=== PATIENT | female | born 2000 | race Caucasian/White ===

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

== ENCOUNTER 2019-05-08 10:11 | Inpatient (IN) | payer BC, MEDICAID ==
--- NOTE | 2019-05-08 10:34 | ED ---
Psychiatric Complaint - HPI Summary HPI Summary: The patient is a 18-year-old female presenting to [facility] accompanied by mother with a chief complaint of gradually worsening thoughts of suicide without plan over the last few days. She reports a history of self-harm , and she believes that she is beginning to feel like she is going to hurt herself. She does not have any medical complaints at this time. She states she is compliant with her medications. Past medical history significant for anxiety and depression. Nonsmoker, no alcohol use, no substance use. Medications reviewed. Allergies noted. - History Of Current Complaint Chief Complaint: EDMentalHealth Time Seen by Provider: 05/08/19 10:24 Hx Obtained From: Patient Onset/Duration: Gradual Onset, Lasting Days, Still Present Timing: Constant Severity Initially: Mild Severity Currently: Moderate Character: Depressed Aggravating Factor(s): Nothing Alleviating Factor(s): Nothing Associated Signs And Symptoms: Positive: Negative Related History: Positive For: Prior Psychiatric Issues Has Suicidal: Reports: Thoughts. Denies: With A Plan - Allergies/Home Medications Allergies/Adverse Reactions: Allergies Allergy/AdvReac Type Severity Reaction Status Date / Time lactase [From Dairy Aid] Allergy Diarrhea Verified 07/04/18 13:23 PMH/Surg Hx/FS Hx/Imm Hx Endocrine/Hematology History: Denies: Hx Diabetes Cardiovascular History: Denies: Hx Hypercholesterolemia, Hx Hypertension Respiratory History: Denies: Hx Asthma Sensory History: Reports: Hx Contacts or Glasses Opthamlomology History: Reports: Hx Contacts or Glasses Psychiatric History: Reports: Hx Anxiety, Hx Depression Denies: Hx Eating Disorder, Hx of Violent Episodes Against Others - Surgical History Surgical History: None Surgery Procedure, Year, and Place: none Infectious Disease History: No Infectious Disease History: Denies: Traveled Outside the [place] in Last 30 Days - Family History Known Family History: Negative: Renal Disease - Social History Alcohol Use: None Hx Substance Use: No Substance Use Type: Reports: None Hx Tobacco Use: No Smoking Status (MU): Never Smoked Tobacco Review of Systems Negative: Fever Negative: Cough Positive: Depressed, Other - suicidal thoughts All Other Systems Reviewed And Are Negative: Yes Physical Exam - Summary Physical Exam Summary: VITAL SIGNS: Reviewed. GENERAL: Patient is a well-developed and nourished female who is lying comfortable in the stretcher. Patient is not in any acute respiratory distress. HEAD AND FACE: No signs of trauma. No ecchymosis, hematomas or skull depressions. No sinus tenderness. EYES: PERRLA, EOMI x 2, No injected conjunctiva, no nystagmus. EARS: Hearing grossly intact. Ear canals and tympanic membranes are within normal limits. MOUTH: Oropharynx within normal limits. NECK: Supple, trachea is midline, no adenopathy, no JVD, no carotid bruit, no c- spine tenderness, neck with full ROM. CHEST: Symmetric, no tenderness at palpation. LUNGS: Clear to auscultation bilaterally. No wheezing or crackles. CVS: Regular rate and rhythm, S1 and S2 present, no murmurs or gallops appreciated. ABDOMEN: Soft, non-tender. No signs of distention. No rebound, no guarding, and no masses palpated. Bowel sounds are normal. EXTREMITIES: FROM in all major joints, no edema, no cyanosis or clubbing. NEURO: Alert and oriented x 3. No acute neurological deficits. Speech is normal and follows commands. SKIN: Dry and warm. PSYCH: Depressed, quiet, and states suicidal thoughts without a plan. No homicidal thoughts or plan. No signs of psychosis or pressure speech. No tangential speech. Triage Information Reviewed: Yes Vital Signs On Initial Exam: Initial Vitals Temp Pulse Resp BP Pulse Ox 97.1 F 88 18 117/73 99 05/08/19 10:18 05/08/19 10:18 05/08/19 10:18 05/08/19 10:18 05/08/19 10:18 Vital Signs Reviewed: Yes Procedures - Sedation Patient Received Moderate/Deep Sedation with Procedure: No Diagnostics - Vital Signs Vital Signs Temp Pulse Resp BP Pulse Ox 05/08/19 10:18 97.1 F 88 18 117/73 99 - Laboratory Result Diagrams: 05/08/19 11:04 05/08/19 11:04 Lab Statement: Any lab studies that have been ordered have been reviewed, and results considered in the medical decision making process. Re-Evaluation - Re-Evaluation First Eval Re-Evaluation Time: 10:30 Comment: Patient is medically clear for psychiatric evaluation. Course/Dx - Course Assessment/Plan: The patient is a 18-year-old female presenting to [facility] accompanied by mother with a chief complaint of gradually worsening thoughts of suicide without plan over the last few days. She reports a history of self-harm, and she believes that she is beginning to feel like she is going to hurt herself. She does not have any medical complaints at this time. She states she is compliant with her medications. Past medical history significant for anxiety and depression. Nonsmoker, no alcohol use, no substance use. Medications reviewed. Allergies noted. Blood work w/o a significant abnormality. She is medically cleared. She is awaiting a MHE. Patient is hemodynamically stable and A+O x 3. Dr. Onofre evaluated the patient and recommends admission. - Differential Dx/Clinical Impression Differential Diagnosis/HQI/PQRI: Positive: Depression, Suicidal Ideation Provider Diagnosis: Depressive disorder - Physician Notifications Discussed Care Of Patient With: Israel Onofre - psychiatry Time Discussed With Above Provider: 15:00 Instructed by Provider To: Other - Dr. Onofre and the psychiatric team have evaluated the patient and determined her warranting need for admission on voluntary status. Patient Is Medically Stable For: Psych Evaluation Discharge ED - Sign-Out/Discharge Documenting (check all that apply): Patient Departure - Patient admitted to [facility] - Discharge Plan Condition: Improved Disposition: [facility]ATRIC [facility] [place] Billing Disposition and Condition Condition: STABLE Disposition: Psychiatric Facility [facility] - Attestation Statements Document Initiated by Scribe: Yes Documenting Scribe: Irena Lozoya Provider For Whom Micki is Documenting (Include Credential): Dr. Tong Hodgson MD Scribe Attestation: Irena Marc scribed for Dr. Tong Hodgson MD on 05/11/19 at 1731. Scribe Documentation Reviewed: Yes Provider Attestation: The documentation as recorded by the Irena kearney accurately reflects the service I personally performed and the decisions made by me, Dr. Tong Hodgson MD Status of Scribe Document: Viewed
[2019-05-08 10:54] LABS: Urine Appearance Cloudy; Urine Bilirubin Negative (Negative); Urine Blood 2+ (Negative); Urine Color Yellow; Urine Glucose Negative (Negative); Urine Ketones Negative (Negative); Urine Nitrite Negative (Negative); Urine Protein Negative (Negative); Urine Specific Gravity 1.024 (1.010-1.030); Urine Urobilinogen Negative (Negative)
[2019-05-08 11:04] LABS: Urine Bacteria 1+ (Absent); Urine Benzodiazepine Screen None Detected (None Detect); Urine Opiates Screen None Detected (None Detect); Urine Red Blood Cell Absent (Absent); Urine Squamous Epithelial Cell Present (Absent); Urine White Blood Cell Trace(0-5/hpf) (Absent)
[2019-05-08 11:13] LABS: ABS Lymphocytes 1.6 10^3/ul (1.0-4.8); ABS Monocytes 0.5 10^3/ul (0-0.8); ABS Neutrophils 2.8 10^3/ul (1.5-7.7); Eosinophil % 0.6 %; Hematocrit 40 % (35-47); Hemoglobin 13.7 g/dL (12.0-16.0); Lymphocyte % 32.7 %; Mean Corpuscular HGB Conc 34 g/dL (31-36); Mean Corpuscular Hemoglobin 30 pg (27-31); Mean Corpuscular Volume 88 fL (80-97); Mean Platelet Volume 8.7 fL (7.4-10.4); Nucleated Red Blood Cells % 0.1; Platelet Count 210 10^3/uL (150-450); Red Blood Count 4.59 10^6 /uL (3.70-4.87); Red Cell Distribution Width 13 % (10-15)
--- OUTSIDE RECORDS SUMMARY | 2019-05-08 11:16 | XMS REPORT ---
:2000 Author Organization [facility] Address [address] [place] [address] Care Team Providers Name Role Phone Stu Flower Unavailable Unavailable PROBLEMS Type Condition ICD9-CM Code [id number] Code Onset Condition SNOMED Code Dates Status Problem Vision decreased H54.7 Active 955876730 Problem Primary insomnia F51.01 Active 2718827 Problem Decreased vision H54.2 Active 247632027 in both eyes Problem Migraine without G43.009 Active 006201581 aura and without status migrainosus, not intractable Problem Depression with F41.8 Active 133530524 anxiety ALLERGIES No Information ENCOUNTERS Encounter Location Date Diagnosis [address], Feb, Concussion S06.0X9A [place] [address] [facility] [address] [facility] Feb, [place] [address] [place] [address] [facility] Jan, [place] [address], Jan, [place] [address] consciousness, initial encounter S06.0X0A [facility] [address] [facility] Jan, [place] [address], Oct, Well adult exam Z00.00 ; [place] [address] Depression with anxiety F41.8 ; Vision decreased H54.7 ; Primary insomnia F51.01 ; Overweight (BMI 25.0-29.9) E66.3 ; BMI 26.0-26.9,adult Z68.26 ; Encounter for immunization Z23 and Contraceptive education Z30.[address], Oct, [place] F51.01 [place] [address] [place] [facility] [address] [place] [address] [place], [place] [address] [place], [place] [address] [place], Jan, Throat [place] R07.0 [place] [address] [place], Nov, Viral gastroenter[place] A08.4 [place] [address] ; Overweight (BMI 25.0-29.9) E66.3 and BMI 26.0-26.9,adult Z68.[address] [place] [address] [place], [place] [address] [place], Aug, [place] [address] F41.8 ; Acute midline low back pain without sciatica M54.5 and Chest pain at rest R07.[address] [place], [place] [address] Jul, [place] [address] [place], [place] [address] [place], June, [place] [address] health examination without abnormal findings Z00.129 ; Tachycardia R00.0 ; Decreased vision in both eyes H54.2 ; Migraine without aura and without status migrainosus, not intractable G43.009 and Depression with anxiety F41.[address] [place], Dec, [place] [address] [place], [place] [address] [place], Nov, [place] [address] cause R41.3 ; Blurred vision H53.8 and Weakness of both upper extremities R29.[address] [place], [place] [address] [place], [place] [address] [place], Sep, Sore throat ( viral) J02.9 [place] [address] Aug, [place] [address] [place] [facility] [address] [facility] [place], Jul, [place] [address] examination related to employment Z02.1 ; Migraine without aura and without status migrainosus, not intractable G43.009 and Anxiety F41.9 [place] [facility] [address] [facility] [place], June, [place] [address] without status migrainosus, not intractable G43.009 [place] [facility] [address] [place] [address] [place], [place] [address] Dec, [place] [address] [facility] [address] [place] [address] [place], Nov, [place] [address] J45.[address] [place] [address] [place], Oct, [place] [address] with acute exacerbation J45.41 and Encounter for immunization Z23 [address] Oct, Sibilant rhonchi R06.2 [place] [address] May, [place] [address] [facility] [address] [facility] [place], [place] [address] [facility] [address] [place] [address] [place], [place] [address] [place] [address] [facility] [address] [facility] [place], [place] [address] [facility] [address] [place] [address] [place], Apr, Sibilant [place] R06.2 [place] [address] [facility] [address] [place] [address] [place], Mar, Sibil[place] rh[place] R06.2 [place] [address] Mar, Gastroenteritis K52.9 [place] [address] Jan, [place] [address] Jan, Encounter for routine child [place] health examination [place] [address] abnormal findings Z00.121 ; Decreased vision in both eyes H54.2 and Encounter for immunization Z23 IMMUNIZATIONS No Known Immunizations SOCIAL HISTORY Never Assessed REASON FOR REFERRAL FUNCTIONAL STATUS PLAN OF CARE Activity Details Follow Up after neurology consult Reason:concussion symptoms VITAL SIGNS Temperature 97.5 degrees Fahrenheit 2019-03-26 Heart Rate 20 2019-03-26 Weight 133.6 2019-03-26 Height 60.7 in 2019-03-26 BMI 25.49 kg/m2 2019-03-26 Oximetry 98 % 2019-03-26 Blood pressure systolic 106 mm Hg 2019-03-26 Blood pressure diastolic 74 mm Hg 2019-03-26 MEDICATIONS Unknown Medications PROCEDURES Procedure Date Ordered Result Body Site BODY MASS INDEX DOCD Mar 26, 2019 SMOKING + 2ND HAND ASSESSED Mar 26, 2019 Oxygen saturation results documented and reviewed Mar 26, 2019 BLOOD PRESSURE, MEASURED Mar 26, 2019 RESULTS No Results REASON FOR VISIT Not feeling well, Patient needs to be check for a concussion that she had last year. Insurance Providers [facility] Member Patient Patient Patient Patient Patient Subscriber Subscriber Subscriber Group Insurance Plan Plan Plan Plan ID Relationship Address Phone Name Date of ID Name Date of No Type Insurance Insurance Insurance Coverage to Subscriber Address Phone Name Dates Medicaid [address] [phone] Medicaid self [place] 2000 [id number] [address] [facility] [address] [facility] [id number] Case [phone] Case [id number] [place] 2000 [id number] Management Bartolo Edmonds Management [id number]: [facility] [address] [facility] 65 Jun [phone] [place] self [place] 2000 [id number] Medicaid [id number] Medicaid [facility] [address] [employer] Jun [phone] [facility] self [place] 2000 [id number] Medicaid [place] 47 Medicaid [facility] [address] Medical CMP CMP [id number] [place] 2000 [id number] [facility] [id number]: [facility] [address] Mobile [id number] Program Program 66 CHP [phone] CHP self [place] 2000 [id number] [employer] [id number] 58 [employer] [facility] 2 Plan [place] Plan Medical [id number] Medical CHP MVP [phone] CHP MVP self [place] 2000 [id number] [phone] Camb[place] 9255 Attn 83 [id number] Camby [place] CHP Hplex Claims Hplex Dept [facility] [id number] [employer] [phone] [employer] [place] [id number] BCBS PPO [id number] BCBS PPO [place] 1 EPO Trad [place] EPO Trad [address] MEDICAL (GENERAL) HISTORY Type Description Date Medical History vision defect Medical History Lactose intolerant Surgical History L eye correction Hospitalization History see above
[2019-05-08 11:32] LABS: ALT 16 U/L (7-52); AST 16 U/L (13-39); Albumin 4.8 g/dL (3.2-5.2); Albumin/Globulin Ratio 1.8 (1-3); Alkaline Phosphatase 65 U/L (34-104); Anion Gap 8 mmol/L (2-11); BUN/Creatinine Ratio 19.1 (8-20); Blood Urea Nitrogen 13 mg/dL (6-24); CO2 Carbon Dioxide 26 mmol/L (22-32); Chloride 105 mmol/L (101-111); EGFR African American 134.9 (>60); EGFR Non-African American 111.5 (>60); Globulin 2.7 g/dL (2-4); Glucose 85 mg/dL (70-100); Sodium 139 mmol/L (135-145); Total Protein 7.5 g/dL (6.4-8.9)
[2019-05-08 12:09] LABS: Acetaminophen < 15 mcg/mL; Alcohol < 10 mg/dL (<10); Salicylate < 2.50 mg/dL (<30)
[2019-05-08 12:19] LABS: TSH (Thyroid Stimulating Horm) 4.49 mcIU/mL (0.34-5.60)
[2019-05-08] MEDS ORDERED: hydrOXYzine HCL TAB* 50 MG PO PRN (16:39)
[2019-05-08] MEDS ORDERED: Al Hydrox/Mg Hydrox/Simet LIQ* 30 ML UDC PO PRN (17:36)
[2019-05-08] MEDS ORDERED: Acetaminophen TAB* 325 MG PO PRN (17:36)
[2019-05-09] MEDS ORDERED: Vitamin THERAPEUTIC TAB PO SCH (09:00)
[2019-05-09 09:25] VITALS: BP 131/69
[2019-05-09 10:52] LABS: HCG Pregnancy < 0.60 mIU/mL
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
== END 2019-05-09 16:30 | disposition home or self-care (01) | DRG 754 ==
LOC: ED 10:11 → BSU 16:14 → ED 16:25 → BSU 17:39
PROVIDERS: ADMIT Psychiatry & Neurology Psychiatry; ATTEND Psychiatry & Neurology Psychiatry
DX: F32.9 Major depressive disorder, single episode, unspecified (principal); Z62.810 Personal history of physical and sexual abuse in childhood; F41.9 Anxiety disorder, unspecified; Z91.5 Personal history of self-harm; Z87.820 Personal history of traumatic brain injury; Z91.011 Allergy to milk products; Z28.21 Immunization not carried out because of patient refusal
CPT/HCPCS: 36415; 80053; 80307; 80320; 80329; 81003; 81015; 84443; 84702; 85025; 87086; 99238; 99284; A9270-GY; G0480

== ENCOUNTER 2020-07-26 21:38 | Inpatient (IN) ==
[2020-07-26 23:18] LABS: ABS Eosinophils 0.1 10^3/ul (0-0.6); ABS Lymphocytes 1.5 10^3/ul (1.0-4.8); ABS Monocytes 0.6 10^3/ul (0-0.8); ABS Neutrophils 2.9 10^3/ul (1.5-7.7); Eosinophil % 1.2 %; Hematocrit 40 % (35-47); Hemoglobin 13.7 g/dL (12.0-16.0); Lymphocyte % 29.6 %; Mean Corpuscular HGB Conc 34 g/dL (31-36); Mean Corpuscular Hemoglobin 29 pg (27-31); Mean Corpuscular Volume 85 fL (80-97); Mean Platelet Volume 9.3 fL (7.4-10.4); Platelet Count 231 10^3/uL (150-450); Red Blood Count 4.73 10^6 /uL (3.70-4.87); Red Cell Distribution Width 13 % (10-15); White Blood Count 5.1 10^3/uL (3.5-10.8)
[2020-07-26 23:42] LABS: Urine Appearance Cloudy; Urine Bilirubin Negative (Negative); Urine Blood Negative (Negative); Urine Color Yellow; Urine Glucose Negative (Negative); Urine Ketones Negative (Negative); Urine Nitrite Negative (Negative); Urine Protein Negative (Negative); Urine Specific Gravity 1.024 (1.002-1.030); Urine Urobilinogen Positive (Negative)
[2020-07-26 23:42] LABS: ALT 13 U/L (7-52); AST 12 U/L (13-39); Albumin 4.8 g/dL (3.2-5.2); Albumin/Globulin Ratio 1.6 (1-3); Alcohol, S < 10 mg/dL (<10); Alkaline Phosphatase 83 U/L (35-149); Anion Gap 7 mmol/L (2-11); Blood Urea Nitrogen 17 mg/dL (6-24); CO2 Carbon Dioxide 27 mmol/L (22-32); Chloride 105 mmol/L (101-111); EGFR African American 129.1 (>60); EGFR Non-African American 106.7 (>60); Glucose 80 mg/dL (70-100); Potassium 3.6 mmol/L (3.5-5.0); Salicylate < 2.50 mg/dL (<30); Sodium 139 mmol/L (135-145); Total Protein 7.8 g/dL (6.4-8.9)
[2020-07-26 23:45] LABS: Acetaminophen < 15 mcg/mL
[2020-07-26 23:52] LABS: Urine Benzodiazepine Screen None Detected (None Detect); Urine Cannabinoids Screen None Detected (None Detect); Urine Opiates Screen None Detected (None Detect)
[2020-07-26 23:58] LABS: TSH Ultra Thyroid Stim Horm 3.38 mcIU/mL (0.34-5.60)
[2020-07-27] MEDS ORDERED: Al Hydrox/Mg Hydrox/Simet LIQ 30 ML UDC PO PRN (08:46)
[2020-07-27] MEDS: Vitamin THERAPEUTIC TAB PO SCH (10:42)
[2020-07-28] MEDS: Vitamin THERAPEUTIC TAB PO SCH (09:17)
[2020-07-29 08:25] LABS: HDL Cholesterol 43.5 mg/dL
[2020-07-29] MEDS: Vitamin THERAPEUTIC TAB PO SCH (09:49)
[2020-07-30 08:44] VITALS: BP 117/67
[2020-07-30] MEDS: Vitamin THERAPEUTIC TAB PO SCH (08:53)
[2020-07-30] MEDS ORDERED: Cholecalciferol (VIT D3) 1,000 unit TAB PO SCH (09:00)
== END 2020-07-30 17:05 | disposition home or self-care (01) | DRG 751 ==
LOC: ED 21:38 → BSU 07-27 08:20
PROVIDERS: ADMIT Psychiatry & Neurology Psychiatry; ATTEND Psychiatry & Neurology Psychiatry